=== PATIENT | female | born 1990 | race Caucasian/White ===

== ENCOUNTER 2018-12-28 09:26 | Inpatient (IN) | payer OTHER ==
[~2018-12-28] VITALS: Ht 162.6 cm; Wt 68.2 kg
[~2018-12-28 09:26] MED LIST: METF500T17 PO; PNV1TABL11 PO
[2018-12-28 10:12] VITALS: BP 108/69
[2018-12-28] MEDS ORDERED: MISOPROSTOL 200 MCG TABLET ONE (11:37)
[2018-12-28] MEDS ORDERED: OXYTOCIN 30U/ 0.9% NaCL 500ML 500 ML ONE (11:37)
[2018-12-28] MEDS ORDERED: NEWBORN KIT ONE (11:37)
[2018-12-28] MEDS ORDERED: LIDOCAINE 1%, 20ML ONE (11:37)
[2018-12-28] MEDS ORDERED: OXYTOCIN 30U/ 0.9% NaCL 500ML 500 ML IV ONE (11:41)
[2018-12-28] MEDS ORDERED: OXYTOCIN 30U/ 0.9% NaCL 500ML 500 ML IV PRN (11:41)
[2018-12-28] MEDS ORDERED: D5%-LACTATED RINGERS 1,000 ML IV SCH (11:41)
[2018-12-28] MEDS: LACTATED RINGERS 1,000 ML IV SCH ×2 (11:54→23:24)
[2018-12-28] MEDS ORDERED: ONDANSETRON 2MG/ML, 2ML IVPush PRN (12:00)
[2018-12-28] MEDS ORDERED: FENTANYL PF 100 MCG/2ML IVPush PRN (12:00)
[2018-12-28] MEDS ORDERED: FENTANYL PF 100 MCG/2ML IV PRN (12:00)
[2018-12-28] MEDS ORDERED: CALCIUM CARBONATE 500 MG TAB.CHEW PO PRN (12:00)
[2018-12-28 12:23] LABS: BASOPHILS # (AUTO) 0.05 x10^3/uL (0-0.1); BASOPHILS % (AUTO) 1 % (0-1); EOSINOPHILS # (AUTO) 0.11 x10^3/uL (0-0.4); EOSINOPHILS % (AUTO) 1 % (1-7); LYMPHOCYTES # (AUTO) 2.05 x10^3/uL (1-3.4); LYMPHOCYTES % (AUTO) 25 % (22-44); MD NO; MEAN CORPUSCULAR HEMOGLOBIN 32.8 pg (27.0-34.8); MEAN CORPUSCULAR HGB CONC 34.5 g/dL (32.4-35.8); MEAN CORPUSCULAR VOLUME 95.1 fL (80-100); MEAN PLATELET VOLUME 10.7 fL (7.4-10.4); MONOCYTES # (AUTO) 0.58 x10^3/uL (0.2-0.8); MONOCYTES % (AUTO) 7 % (2-9); NEUTROPHILS # (AUTO) 5.27 x10^3/uL (1.8-6.8); NEUTROPHILS % (AUTO) 66 % (42-75); PLATELET COUNT 182 x10^3/uL (130-400); RED BLOOD COUNT 4.06 x10^6/uL (3.82-5.3); RED CELL DISTRIBUTION WIDTH 13.2 % (9.6-15.2)
[2018-12-28 19:04] VITALS: BP 108/62
[2018-12-29] MEDS ORDERED: OXYTOCIN 30U/ 0.9% NaCL 500ML 500 ML ONE (02:29)
[2018-12-29] MEDS ORDERED: IBUPROFEN 600 MG TABLET ONE (02:29)
[2018-12-29] MEDS: OXYTOCIN 30U/ 0.9% NaCL 500ML 500 ML IV SCH ×2 (02:33→12:33)
[2018-12-29] MEDS ORDERED: RHOGAM FROM BLOOD BANK 1 NOTE EA IM/IV ONE (03:00)
[2018-12-29] MEDS ORDERED: DIPH,PERTUSS(ACELL),TET VAC/PF NC IM-VACC PRN (03:00)
[2018-12-29] MEDS ORDERED: DOCUSATE 100 MG CAPSULE PO PRN (03:00)
[2018-12-29] MEDS ORDERED: MISOPROSTOL 200 MCG TABLET PR PRN (03:00)
[2018-12-29] MEDS ORDERED: MEASLES,MUMPS&RUBELLA VACC/PF 0.5 ML SQ PRN (03:00)
[2018-12-29] MEDS ORDERED: MAGNESIUM HYDROXIDE 8%, 30ML UDC PO PRN (03:00)
[2018-12-29] MEDS ORDERED: OXYcodone/APAP 5/325MG TABLET PO PRN (03:00)
[2018-12-29] MEDS ORDERED: IBUPROFEN 600 MG TABLET PO PRN (03:00)
[2018-12-29] MEDS ORDERED: CALCIUM CARBONATE 500 MG TAB.CHEW PO PRN (03:00)
[2018-12-29] MEDS ORDERED: OXYcodone IR 5MG TABLET PO PRN (03:00)
[2018-12-29] MEDS ORDERED: ONDANSETRON 2MG/ML, 2ML IV PRN (03:00)
[2018-12-29 04:30] VITALS: BP 98/62
[2018-12-29] MEDS: PRENATAL VIT/IRON/FA 1 EACH TABLET PO SCH (08:25)
[2018-12-29 09:30] VITALS: BP 97/61
[2018-12-29 10:08] LABS: BASOPHILS # (AUTO) 0.01 x10^3/uL (0-0.1); BASOPHILS % (AUTO) 0 % (0-1); EOSINOPHILS # (AUTO) 0.06 x10^3/uL (0-0.4); EOSINOPHILS % (AUTO) 1 % (1-7); LYMPHOCYTES # (AUTO) 1.46 x10^3/uL (1-3.4); LYMPHOCYTES % (AUTO) 14 % (22-44); MD NO; MEAN CORPUSCULAR HEMOGLOBIN 31.8 pg (27.0-34.8); MEAN CORPUSCULAR HGB CONC 33.4 g/dL (32.4-35.8); MEAN CORPUSCULAR VOLUME 95.1 fL (80-100); MEAN PLATELET VOLUME 10.4 fL (7.4-10.4); MONOCYTES # (AUTO) 0.64 x10^3/uL (0.2-0.8); MONOCYTES % (AUTO) 6 % (2-9); NEUTROPHILS # (AUTO) 8.45 x10^3/uL (1.8-6.8); NEUTROPHILS % (AUTO) 80 % (42-75); PLATELET COUNT 192 x10^3/uL (130-400); RED BLOOD COUNT 3.69 x10^6/uL (3.82-5.3); RED CELL DISTRIBUTION WIDTH 13.4 % (9.6-15.2)
[2018-12-29 12:07] VITALS: BP 93/54
[2018-12-29 16:30] VITALS: BP 101/62
[2018-12-29 19:44] VITALS: BP 101/65
[2018-12-30 00:10] VITALS: BP 91/58
[2018-12-30 07:15] VITALS: BP 83/53
[2018-12-30] MEDS ORDERED: IBUP-1222 PO (08:42)
[2018-12-30] MEDS: PRENATAL VIT/IRON/FA 1 EACH TABLET PO SCH (09:00)
== END 2018-12-30 13:06 | disposition home or self-care (01) | DRG 807 ==
LOC: LDOP 09:26 → LDIP 11:41 → 2NW 12-29 04:15
PROVIDERS: ADMIT Obstetrics & Gynecology; ATTEND Obstetrics & Gynecology
PROC: 10E0XZZ Delivery of Products of Conception, External Approach (ICD-10-PCS; principal; 2018-12-29)
PROC: 10907ZC Drainage of Amniotic Fluid, Therapeutic from Products of Conception, Via Natural or Artificial Opening (ICD-10-PCS; 2018-12-29)
DX: O48.0 Post-term pregnancy (principal); Z37.0 Single live birth; O69.81X0 Labor and delivery complicated by cord around neck, without compression, not applicable or unspecified; O77.0 Labor and delivery complicated by meconium in amniotic fluid; O33.9 Maternal care for disproportion, unspecified; O40.3XX0 Polyhydramnios, third trimester, not applicable or unspecified; Z3A.41 41 weeks gestation of pregnancy
CPT/HCPCS: 36415; 82803; 85025; 86850; 86900; 89060; G0378; J2590; J7120; Q0114